=== PATIENT | female | born 1980 | race Caucasian/White ===

== ENCOUNTER 2022-09-16 12:38 | Outpatient (CLI) | payer OTHER, SELFPAY ==
--- NOTE | 2022-09-16 13:00 | CRLHL7_ITS ---
For Patients: As a result of the Cures Act, medical imaging exams and procedure reports are released immediately into your electronic medical record. You may view this report before your referring provider. If you have questions, please contact your health care provider. BILATERAL SCREENING MAMMOGRAM WITH COMPUTER-AIDED DETECTION AND TOMOSYNTHESIS TECHNIQUE: CC, MLO and Implant displaced views were obtained. These mammographic images have been obtained using full-field digital technique. These mammographic images were interpreted with the benefit of computer-aided detection. Breast Tomosynthesis was used in this interpretation. COMPARISON FILM: 04/30/21 FINDINGS: The breasts are heterogeneously dense, which may obscure small masses. IMPRESSION: There is no radiographic evidence for malignancy. ASSESSMENT: BI-RADS Category 2: Benign RECOMMENDATION: Routine screening mammogram in 1 year. A lay language report of this examination will be provided to the patient. Kp Willard M.D. Diagnostic Radiologist [email or web address] Transcribed: 8:41 a.m. PT/Dictated by: Kp Willard MD @ 09/17/2022 8:55:00 AM (Electronically Signed)
== END 2022-09-16 12:39 | disposition home or self-care (01) ==
LOC: MAMMO 12:38
PROVIDERS: Visit Provider Obstetrics & Gynecology
DX: Z12.31 Encounter for screening mammogram for malignant neoplasm of breast (principal); R92.2 Inconclusive mammogram
CPT/HCPCS: 77063; 77067

== ENCOUNTER 2023-09-25 14:44 | Outpatient (CLI) | payer BC, SELFPAY ==
--- NOTE | 2023-09-25 14:40 | MM_ITS ---
Patient: TAMMIE RICHOP Facility:?[facility] Patient ID:?[id number] Site Patient ID:?[id number]. Site :?1980 Study:?XRay-Breast Bilateral 3D W/CAD-09/25/2023 3:30:50 PM Ordering Physician:?VICENTA MARRUFO Final Report: BILATERAL SCREENING MAMMOGRAM WITH COMPUTER-AIDED DETECTION AND TOMOSYNTHESIS TECHNIQUE: CC, MLO and Implant displaced views were obtained. These mammographic images have been obtained using full-field digital technique. These mammographic images were interpreted with the benefit of computer-aided detection. Breast Tomosynthesis was used in this interpretation. COMPARISON FILM: 09/16/22, 04/30/21, 03/21/20. FINDINGS: The breasts are heterogeneously dense, which may obscure small masses. IMPRESSION: There is no radiographic evidence for malignancy. ASSESSMENT: BI-RADS Category 2: Benign. RECOMMENDATION: Routine screening mammogram in 1 year. A lay language report of this examination will be provided to the patient. Kp Willard M.D. Diagnostic Radiologist [email or web address] DSM/sp R& Transcribed: 2:46 p.m. SP/Dictated by: Kp Willard MD @ 09/29/2023 11:50:00 AM Signed by:?Kp Willard MD @09/29/2023 3:05:15 PM (Electronic Signature)
== END 2023-09-25 14:45 | disposition home or self-care (01) ==
LOC: MAMMO 14:46
PROVIDERS: PCP Physician Assistant Medical; Visit Provider Physician Assistant Medical
DX: Z12.31 Encounter for screening mammogram for malignant neoplasm of breast (principal); R92.2 Inconclusive mammogram
CPT/HCPCS: 77063; 77067

== ENCOUNTER 2024-11-19 13:32 | Outpatient (CLI) | payer BC, OTHER, SELFPAY ==
--- OUTSIDE RECORDS SUMMARY | 2023-11-13 04:01 | XMS_ITS | Continuity of Care Document ---
Author Organization [facility] Address [address] [address] [place] [address] Phone Care Team Providers Care Usps Letter Carrier Name Role Phone Chris Elliott CRNA Unavailable Unavailable Allergies, Adverse Reactions, Alerts Substance Reaction Status Criticality Sulfa (Sulfonamide Antibiotics) Active No Information No Known Allergies Resolved No Inform ation Medications Medication Instructions Dosage Effective Dates (start - stop) Status Comments No Drug Therapy Prescribed Procedures Procedure Date Colonoscopy Flex; Dx (sep Pro) 24 Advance Directives Directive Yes / No Effective Date File Name No Information Encounters Encounter Description Practice Location Reason(s) For Visit Diagnoses Date Provider Providers Copied on Encounter [facility] [place], [address] [address], [facility] [place], [id number], [place] tel:[phone] [facility] No Information 4 Earl Perez. [address] [facility], [place], [place], [id number] , [place]. tel:[phone] Referring Provider: Torito Cruz MD M, [address] [facility] [address], [place], [address] . tel:[phone] [facility] [place], [address] [address], [facility] [place], [id number], [place] tel:[phone] [facility] GI Symptoms or Concerns (chief complaint) Screening ColonoscopyFamily history of colon polyps, unspecifiedEncounte r for screening for malignant neoplasm of colon 4 Anthony Ugarte. [address] [facility], [place], [place], [id number] , [place]. tel:[phone] Referring Provider: Jennifer Barreto [facility], [address] [place] [address], [address]. tel:[phone] [facility], [address] [address], [place], [id number], [place] tel:[phone] [facility] No Information Dominik Comer. [address] [facility], [place], [id number] , [place]. tel:[phone] Family History Family Member Type Diagnosis Age At Onset Sister Problem (finding) Irritable bowel syndrom e Immunizations Vaccine Date Status Comments SARS-COV-2 (COVID-19) vaccin e, mRNA, spike protein, LNP, preservative free, 30 mcg/0.3mL dose administered Note: [facility] bi-direct ional interface ; Source: Other Registry SARS-COV-2 (COVID-19) vaccin e, mRNA, spike protein, LNP, preservative free, 30 mcg/0.3mL dose administered Note: [facility] bi-direct ional interface ; Source: Other Registry tetanus toxoid, reduced diphtheria toxoid, and acellular pertussis vaccine, adsorbed administered Note: [facility] b i-directional interface ; Source: Other Registry tetanus toxoid, reduced diphtheria toxoid, and acellular pertussis vaccine, adsorbed administered Note: [facility] b i-directional interface ; Source: Other Registry seasonal influenza, intrader mal, preservative free administered Note: [facility] bi-direct ional interface ; Source: Other Registry tetanus toxoid, reduced diphtheria toxoid, and acellular pertussis vaccine, adsorbed administered Note: [facility] b i-directional interface ; Source: Other Registry Afluria Qd administered Note: [facility] bi-directional interface ; Source: Other Registry Novel [id number], injectable administered Note: [facility] bi-direct ional interface ; Source: Other Registry Payers Payer name Insurance type Covered green party ID Authorjustina lynnettecal(s) [employer] Of [facility] [id number] Social History Type Description Quantity Date Captured Comments Sex Female Smoking Status No Information Chief Complaint And Reason For Visit No Information Reason For Referral Reason For Referral No Information History Of Present Illness Encounter Date Complaint History Of Prese nt Illness GI Symptoms or Concerns Functional Status Date Functional Assessmen t No Information Medications Administered Medication Instructions Dosage Effective Dates (start - stop) Status Comments No Drug Therapy Prescribed Instructions Date Instruction Additional Infor mation No Information Assessments Type Assessment Date No Information Patient Care Teams Name Effective Dates (start - stop) Status Members No Information
--- NOTE | 2024-11-19 13:40 | CRLHL7_ITS ---
For Patients: As a result of the Century Cures Act, medical imaging exams and procedure reports are released immediately into your electronic medical record. You may view this report before your referring provider. If you have questions, please contact your health care provider. BILATERAL DIGITAL SCREENING MAMMOGRAM WITH COMPUTER-AIDED DETECTION AND TOMOSYNTHESIS CLINICAL HISTORY: Routine screening exam. COMPARISON: 09/25/2023, 09/16/2022, 04/30/2021 TECHNIQUE: Digital mammogram in CC and MLO projections including computer-aided detection (CAD). Tomosynthesis was used in this interpretation. BREAST COMPOSITION: The breasts are heterogeneously dense, which may obscure small masses. FINDINGS: RIGHT Breast: Focal nodular density within the retroareolar plane 2 cm from the nipple. LEFT Breast: No suspicious findings. IMPRESSION: RIGHT breast asymmetry/mass. RECOMMENDATIONS: RIGHT breast ultrasound recommended. This is likely a cyst. The [facility] will contact the patient. A lay language report of this examination will be provided to the patient. BI-RADS Category 0: Incomplete: Need Additional Imaging Evaluation Dictated by Kp Willard MD @ 11/22/2024 9:44:39 AM Dictated by: Kp Willard MD @ 11/22/2024 09:44:48 (Electronically Signed)
--- OUTSIDE RECORDS SUMMARY | 2024-11-20 00:32 | XMS_ITS | Encounter Summary ---
Author Organization [facility] Address [address] [place] [address]. [place] [address] Care Team Providers Care Chinese Teacher Name Role Phone No Ref-Primary, Physician Primary Care Provider Nighat Mckeon MD Unavailable [phone] Encounter Details Date Type Department Care Team (Late st Contact Info) Description 10/20/2023 [facility] Medical Advice [facility] [address] [place] [address] Nicolette Hyman Social History Tobacco Use Types Packs/Day Years Used Date Smoking Tobacco: Never Smokeless Tobacco: Never PHQ-2 Answer Date Recorded PHQ-2 Score 0 04/09/2022 Adolescent Education Answer Date Record ed Getting School Help Needed Not on file 03/09 Comments No Sex and Gender Information Value Date Recorded Sex Assigned at Not on file 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
--- OUTSIDE RECORDS SUMMARY | 2024-11-20 00:32 | XMS_ITS | Encounter Summary ---
Author Organization [place] [facility] Address [address] [place] [address]. [place] [address] Care Team Providers Care Air Conditioning Coil Assembler Name Role Phone No Ref-Primary, Physician Primary Care Provider Nighat Mckeon MD Unavailable [phone] Encounter Details Date Type Department Care Team (Late st Contact Info) Description 06/13/2023 [facility] Medical Advice [facility] [address] [place] [id number] Alice Laws Social History Tobacco Use Types Packs/Day Years Used Date Smoking Tobacco: Never Assessed PHQ-2 Answer Date Recorded PHQ-2 Score 0 04/09/2022 Adolescent Education Answer Date Record ed Getting School Help Needed Not on file 03/09 Comments No Sex and Gender Information Value Date Recorded Sex Assigned at Not on file 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
--- OUTSIDE RECORDS SUMMARY | 2024-11-20 00:32 | XMS_ITS | Encounter Summary ---
Author Organization [facility] Address [address] [place] [address]. [place] [address] Care Team Providers Care Office Services Clerk Name Role Phone No Ref-Primary, Physician Primary Care Provider Nighat Mckeon MD Unavailable [phone] Encounter Details Date Type Department Care Team (Late st Contact Info) Description 03/05/2021 [facility] Medical Advice [facility] [address] [facility] [address] [place] [address] Carol Quinn Social History Tobacco Use Types Packs/Day Years Used Date Smoking Tobacco: Never Assessed Comments Unknown Sex and Gender Information Value Date Recorded Sex Assigned at Not on file 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
--- OUTSIDE RECORDS SUMMARY | 2024-11-20 00:32 | XMS_ITS | Clinical Summary ---
Author Organization [facility] Address [address] [place] [address] Care Team Providers Care Quality Improvement Consultant Name Role Phone No Ref-Primary, Physician Primary Care Provider Nighat Mckeon MD Unavailable [phone] Allergies Active Allergy Reactions Criticality Noted Date Comments Sulfa Antibiotics Nausea and Vomiting Low 8 Medications No known medications Active Problems Problem Noted Date Diagnosed Date Calculus of kidney 09/26/2017 Overview (09/23/2023): Added automatically from request for surgery [id number] Immunizations Immunization Administration Dates Next Due COVID-19 MONOVALENT 12+ (Pfizer) 07/19/2020,06/03 [id number] Novel Flu 04/04/2009 Influenza (intradermal) 06/10/2012 Influenza Vaccine >6 months,quad, PF 04/04/2009 TDAP (Adacel,Boostrix) 05/09/2016,11/02/2013, Family History * Patient is adopted Medical History Relation Comments Thyroid Disease Maternal Aunt Alcoholism Maternal Grandmother Diabetes Maternal Grandmother Relation Status Comments Maternal Aunt Alive Maternal Grandmother Social History Tobacco Use Types Packs/Day Years Used Date Smoking Tobacco: Never Smokeless Tobacco: Never PHQ-2 Answer Date Recorded PHQ-2 Score 0 04/09/2022 Adolescent Education Answer Date Record ed Getting School Help Needed Not on file 03/09 Comments No Sex and Gender Information Value Date Recorded Sex Assigned at Not on file Legal Sex Female 3:18 AM REFERRAL CLERK Gender Identity Not on file Sexual Orientation Not on file Last Filed Vital Signs Vital Sign Reading Time Taken Comments Blood Pressure 108/74 09/25/2023 9:19 AM CDT Pulse 76 04/09/2022 10:10 AM REFERRAL CLERK Temperature - - Respiratory Rate - - Oxygen Saturation - - Inhaled Oxygen Concentration - - Weight 75.8 kg (167 lb) 09/25/2023 9:19 AM CDT Height 167.6 cm (5' 6) 04/09/2022 10:10 AM REFERRAL CLERK Body Mass Index 26.95 04/09/2022 10:10 AM REFERRAL CLERK Plan of Treatment Health Maintenance Due Date Last Done Comments ADVANCE CARE PLANNING 1979 ANNUAL REVIEW OF HM ORDERS 1979 CT COLONOGRAPHY 1979 FIT 1979 FLEX SIG 1979 MAMMO SCREENING 1979 sDNA (Cologuard) 1979 COLONOSCOPY 1989 COLORECTAL CANCER SCREENING 1989 HIV SCREENING 1994 HEPATITIS C SCREENING 1997 HEPATITIS B VACCINE (1 of 3 - 19+ 3-dose series) 1998 LIPID 2019 COVID-19 VACCINE (3 - 2023-2 5 season) 2024 07/19/2020, 06/28/2020 PHQ-2 (once per calendar year) 2024 04/09/2022 YEARLY PREVENTIVE VISIT 09/24/2024 09/25/19 24, 04/09/2022 INFLUENZA VACCINE (Season Ended) 2025 06/10/2012, 04/04/2009, 04/04/2009 DIABETES SCREENING 04/09/2025 04/09/2022 DTAP/TDAP/TD VACCINE (4 - Td or Tdap) 05/09/2026 05/09/2016, 11/02/2013, 11/29/2009 HPV TEST 09/24/2028 09/25/2023 PAP 09/24/2028 09/25/2023 ZOSTER VACCINE (1 of 2) 2029 HPV VACCINE Aged Out No longer eligi ble based on patient's age to complete this topic MENINGITIS VACCINE Aged Out No longer eligible based on patient's age to complete this topic PNEUMOCOCCAL VACCINE: PEDIATRICS (0 to 5 YEARS) AND AT-RISK PATIENTS (6 to 49 YEARS) Aged Out No longer eligible b ased on patient's age to complete this topic Procedures Procedure Name Priority Date/Time Associated Diagnosis Comments GYNECOLOGIC CYTOLOGY Routine 09/25/2023 9:26 AM CDT Pap smear for cervical cancer screening HPV HIGH RISK TYPES DNA CERVICAL Routine 09/25/2023 9:26 AM CDT Pap smear for cervical cancer screening HEMOGLOBIN A1C Routine 04/09/2022 11:10 AM REFERRAL CLERK Other fatigue from Last 3 Months or Most Recently Relevant to Health Maintenance Results * Pap screen with HPV - recommended age 30 - 65 years (09/25/2023 9:26 AM CDT) Interpretation Negative for Intraepithelial Lesion or Malignancy (NILM) 09/29/2023 3:16 PM CDT [facility] at 1516 CDT Comment Papanicolaou Test Limitations: Cervical cytology is a screening test with limited sensitivity, and regular screening is critical for cancer prevention. Pap tests are primarily effective for the diagnosis/prevent ion of squamous cell carcinoma, not adenocarcinoma or other cancers. 09/29/2023 3:16 PM CDT [facility] Specimen Adequacy Satisfactory for evaluation, endocervical/henderson sformation zone component absent 09/29/2023 3:16 PM CDT [facility] Clinical Information none 09/29/2023 3:16 PM CDT [facility] Reflex Testing Yes regardless of result 09/29/2023 3:16 PM CDT [facility] Previous Abnormal? No 09/29/2023 3:16 PM CDT [facility] Performing Labs The technical component of this testing was completed at [facility] 09/29/2023 3:16 PM CDT [facility] Brushing CERVIX UTERI STRUCTURE / Unknown 09/25/2023 9:26 AM CDT 09/25/2023 10:32 AM CDT us Nighat MCCRAY - REINA CAMARGO Final Result [facility] [address] [facility] [address], Room [address] [place] [address], [facility] * HPV High Risk Types DNA Cervical (09/25/2023 9:26 AM CDT) Other HR HPV Negative Negative 09/30/2023 3:34 PM CDT [facility] HPV16 DNA Negative Negative 09/30/2023 3:34 PM CDT [facility] HPV18 DNA Negative Negative 09/30/2023 3:34 PM CDT [facility] FINAL DIAGNOSIS This patient's sample is negative for HPV DNA. This test was developed and its performance characteristics determined by the [facility], Molecular Diagnostics Laboratory. It has not been cleared or approved by the FDA. The laboratory is regulated under CLIA as qualified to perform high-complexity testing. This test is used for clinical purposes. It should not be regarded as investigational or for research. METHODOLOGY: The Mimi Nii 4800 system uses automated extraction, simultaneous amplification of HPV (L1 region) and beta-globin, followed by real time detection of fluorescent labeled HPV and beta globin using specific oligonucleotide probes. The test specifically identifies types HPV 16 DNA and HPV 18 DNA while concurrently detecting the rest of the high risk types (31, 33, 35, 39, 45, 51, 52, 56, 58, 59, 66 or 68). COMMENTS: This test is not intended for use as a screening device for woman under age 30 with normal cervical cytology. Results should be correlated with cytologic and histologic findings. Close clinical followup is recommended. 09/30/2023 3:34 PM CDT [facility] Brushing CERVIX UTERI STRUCTURE / Unknown Non-blood Collection / Unknown 09/25/2023 9:26 AM CDT 09/30/2023 8:13 AM CDT us Nighat Mckeon MD LAB - BLOOD ORDERABLES Final Result [facility] [address] [facility] [address] [facility], Room [address] [address], [facility] * Hemoglobin A1c (04/09/2022 11:10 AM REFERRAL CLERK) Hemoglobin A1C 5.1 0.0 - 5.6 % 04/09/2022 11:32 AM REFERRAL CLERK [facility] Comment: Normal <5.7% Prediabetes 5.7-6.4% Diabetes 6.5% or higher Note: Adopted from ADA consensus guidelines. Blood STRUCTURE OF RIGHT UPPER LIMB / Unknown Venipuncture / Unknown 04/09/2022 11:10 AM REFERRAL CLERK 04/09/2022 11:11 AM REFERRAL CLERK Nighat Mckeon MD LAB - BLOOD ORDERABLES Final Result [facility] [address], [address] [place] [address], [facility] [phone] from Last 3 Months or Most Recently Relevant to Health Maintenance Insurance [place] Care Teams Quality Improvement Consultant Relationship Specialty Start Date End Date No Ref-Primary, Physician PCP - General 09/16/17 Nighat Mckeon MD [address] [place] [address] Assigned OBGYN Provider 04/13/22
--- OUTSIDE RECORDS SUMMARY | 2024-11-20 00:32 | XMS_ITS | Clinical Summary ---
Author Organization [facility] Address [address], [place] [address] Care Team Providers Care Platform Supervisor Name Role Phone Unavailable Primary Care Provider Unavailabl e Source Comments You are receiving this document as you are listed as the primary care provider,follow-up provider, or the patient has been referred to you for consultation.This is in compliance with the Medicare and[facility] Hospital[facility] EHR Incentive Program,which states Providers who transition their patient to another setting of careor provider of care or refers their patient to another provider of care shouldprovide summary care record for each transition of care or referral. [facility] Allerg[facility] Active Allergy Reactions Criticality Noted Date Comments Sulfa Antibiotics Nausea And Vomiting Low 8 Medications No known medications Active Problems Problem Noted Date Diagnosed Date Calculus of kidney 09/26/2017 Overview (09/26/2017): Added automatically from request for surgery [id number] Social History Tobacco Use Types Packs/Day Years Used Date Smoking Tobacco: Never Smokeless Tobacco: Never Comments Unknown Sex and Gender Information Value Date Recorded Sex Assigned at Not on file Legal Sex Female 12:59 PM CDT Gender Identity Not on file Sexual Orientation Not on file Last Filed Vital Signs Vital Sign Reading Time Taken Comments Blood Pressure 118/64 10/07/2017 3:30 PM CDT Pulse 75 10/07/2017 3:45 PM CDT Temperature 36.8 C (98.2 F) 10/07/2017 2:27 PM CDT Respiratory Rate 13 10/07/2017 2:30 PM CDT Oxygen Saturation 96% 10/07/2017 3:45 PM CDT Inhaled Oxygen Concentration - - Weight 66.7 kg (147 lb) 10/06/2017 4:00 PM CDT Height 165.1 cm (5' 5) 10/06/2017 4:00 PM CDT Body Mass Index 24.46 10/06/2017 4:00 PM CDT Plan of Treatment Health Maintenance Due Date Last Done Comments Cervical Cancer Screening Due 1979 Colon Cancer Screening Plan Due 1979 Hep C Screening (Preventive Services) 1979 Mammogram 1979 HIV Screening (Preventive Services) 1995 Adult Preventive Visit 1997 HepB Vaccine (1) 1998 COVID-19 Vaccine ( - 2023-2 5 season) 2024 07/19/2020, 06/28/2020 Cholesterol 2024 Influenza Vaccine (Season Ended) 2025 06/10/2012 DTaP/Tdap/Td Vaccine (4 - Tdap) 05/09/2026 05/09/2016, 11/02/2013, 11/29/2009 Zoster/Shingles Vaccine (1 o f 2) 2029 HPV Vaccine Aged Out No longer eligi ble based on patient's age to complete this topic HepA Vaccine Aged Out No longer eligi ble based on patient's age to complete this topic Hib Vaccine Aged Out No longer eligi ble based on patient's age to complete this topic IPV (Polio) Vaccine Aged Out No longe r eligible based on patient's age to complete this topic MCV4 Vaccine Aged Out No longer eligi ble based on patient's age to complete this topic Meningococcal B Vaccine Aged Out No l onger eligible based on patient's age to complete this topic Pneumococcal Vaccine Aged Out No long er eligible based on patient's age to complete this topic Insurance FULLY INSURED Advance Directives * Full Code (Latest Code Status on File) Date Activated Date Inactivated Comments 10/07/2017 1:26 PM 10/07/2017 6:33 PM
== END 2024-11-19 13:33 | disposition home or self-care (01) ==
LOC: MAMMO 13:33
PROVIDERS: PCP Physician Assistant Medical; Visit Provider Physician Assistant Medical
DX: Z12.31 Encounter for screening mammogram for malignant neoplasm of breast (principal); R92.333 Mammographic heterogeneous density, bilateral breasts; N63.10 Unspecified lump in the right breast, unspecified quadrant; Z98.82 Breast implant status
CPT/HCPCS: 77063; 77067

== ENCOUNTER 2024-11-29 09:58 | Outpatient (CLI) | payer BC, OTHER, SELFPAY ==
--- NOTE | 2024-11-29 10:15 | CRLHL7_ITS ---
For Patients: As a result of the Century Cures Act, medical imaging exams and procedure reports are released immediately into your electronic medical record. You may view this report before your referring provider. If you have questions, please contact your health care provider. RIGHT BREAST ULTRASOUND CLINICAL HISTORY: RIGHT breast mass/asymmetry. COMPARISON: Mammogram 11/19/2024. TECHNIQUE: Real-time ultrasound imaging of RIGHT breast with imaging documentation. FINDINGS: Targeted RIGHT breast ultrasound performed at 6 o`clock 2 cm from the nipple. In this location, there is a simple circumscribed anechoic cyst with increased through-transmission measuring 1.3 x 0.9 x 1.3 cm. No abnormal vascularity. No suspicious findings. IMPRESSION: Benign simple cyst RIGHT breast 6 o`clock 2 cm from the nipple measuring 1.3 x 0.9 x 1.3 cm. No evidence of malignancy. RECOMMENDATIONS: Routine screening mammography. Results and recommendations were discussed with the patient at the time of the exam. A lay language report of this examination will be provided to the patient. BI-RADS Category 2: Benign Dictated by pK Willard MD @ 11/29/2024 11:08:58 AM jj/Dictated by: Kp Willard MD @ 11/29/2024 11:09:00 AM (Electronically Signed)
--- OUTSIDE RECORDS SUMMARY | 2024-11-30 02:27 | XMS_ITS | Encounter Summary ---
Author Organization [facility] Address [address] [place] [address]. [place] [address] Care Team Providers Care Hr Consultant Name Role Phone No Ref-Primary, Physician Primary Care Provider Nighat Mckeon MD Unavailable [phone] Encounter Details Date Type Department Care Team (Late st Contact Info) Description 03/05/[address] 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
--- OUTSIDE RECORDS SUMMARY | 2024-11-30 02:27 | XMS_ITS | Encounter Summary ---
Author Organization [facility] Address [address] [place] [address]. [place] [address] Care Team Providers Care Home Health Clinical Supervisor Name Role Phone No Ref-Primary, Physician Primary Care Provider Nighat Mckeon MD Unavailable [phone] Encounter Details Date Type Department Care Team (Late st Contact Info) Description 06/13/2023 [facility] Medical Advice [facility] [address] [place] [id number] Alice Laws Social History Tobacco Use Types Packs/Day Years Used Date Smoking Tobacco: Never Assessed PHQ-2 Answer Date Recorded PHQ-2 Score 0 04/09/2022 Adolescent Education Answer Date Record ed Getting School Help Needed Not on file 03/09 Comments No Sex and Gender Information Value Date Recorded Sex Assigned at Not on file 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
--- OUTSIDE RECORDS SUMMARY | 2024-11-30 02:27 | XMS_ITS | Encounter Summary ---
Author Organization [facility] Address [address] [place] [address]. [place] [address] Care Team Providers Care Business Development Name Role Phone No Ref-Primary, Physician Primary Care Provider Nighat Mckeon MD Unavailable [phone] Encounter Details Date Type Department Care Team (Late st Contact Info) Description 10/20/2023 [facility] Medical Advice [facility] [address] [place] [address] Nicolette Hyman Social History Tobacco Use Types Packs/Day Years Used Date Smoking Tobacco: Never Smokeless Tobacco: Never PHQ-2 Answer Date Recorded PHQ-2 Score 0 04/09/2022 Adolescent Education Answer Date Record ed Getting School Help Needed Not on file 03/09 Comments No Sex and Gender Information Value Date Recorded Sex Assigned at Not on file 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
--- OUTSIDE RECORDS SUMMARY | 2024-11-30 02:27 | XMS_ITS | Clinical Summary ---
Author Organization [facility] Address [address] [address] Care Team Providers Care Caregivers Homecare Name Role Phone Unavailable Primary Care Provider Unavailabl e Source Comments You are receiving this document as you are listed as the primary care provider,follow-up provider, or the patient has been referred to you for consultation.This is in compliance with the Medicare and[facility] EHR Incentive Program,which states Providers who transition their patient to another setting of careor provider of care or refers their patient to another provider of care shouldprovide summary care record for each transition of care or referral. [facility] Allerg[facility] Active Allergy Reactions Criticality Noted Date Comments Sulfa Antibiotics Nausea And Vomiting Low 8 Medications No known medications Active Problems Problem Noted Date Diagnosed Date Calculus of kidney 09/26/2017 Overview (09/26/2017): Added automatically from request for surgery [id number] Social History Tobacco Use Types Packs/Day Years [...]
--- OUTSIDE RECORDS SUMMARY | 2024-11-30 02:27 | XMS_ITS | Clinical Summary ---
Author Organization [facility] Address [address] [place] [address] Care Team Providers Care Assistant Foreman Name Role Phone No Ref-Primary, Physician Primary Care Provider Nighat Mckeon MD Unavailable [phone] Allergies Active Allergy Reactions Criticality Noted Date Comments Sulfa Antibiotics Nausea and Vomiting Low 8 Medications No known medications Active Problems Problem Noted Date Diagnosed Date Calculus of kidney 09/26/2017 Overview (09/23/2023): Added automatically from request for surgery [id number] Immunizations Immunization Administration Dates Next Due COVID-19 MONOVALENT 12+ (Pfizer) 07/19/2020,06/03 [id number] Novel Flu 04/04/2009 Influenza (intradermal) 06/10/2012 Influenza [...] on file Legal 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 Gender Identity Not on file Sexual Orientation Not on file Last Filed Vital Signs Vital Sign Reading Time Taken Comments Blood Pressure 108/74 09/25/2023 9:19 AM CDT Pulse 76 04/09/2022 10:10 AM TRANSFORMER ASSEMBLY SUPERVISOR Temperature - - Respiratory Rate - - Oxygen Saturation - - Inhaled Oxygen Concentration - - Weight 75.8 kg (167 lb) 09/25/2023 9:19 AM CDT Height 167.6 cm (5' 6) 04/09/2022 10:10 AM TRANSFORMER ASSEMBLY SUPERVISOR Body Mass Index 26.95 04/09/2022 10:10 AM TRANSFORMER ASSEMBLY SUPERVISOR Plan of Treatment Health Maintenance Due Date [...] screening HEMOGLOBIN A1C Routine 04/09/2022 11:10 AM TRANSFORMER ASSEMBLY SUPERVISOR Other fatigue from Last 3 Months or [...] component of this testing was completed at [facility] 09/29/2023 3:16 PM CDT [facility] Brushing CERVIX UTERI STRUCTURE / Unknown 09/25/2023 9:26 AM CDT 09/25/2023 10:32 AM CDT us Nighat MCCRAY - REINA CAMARGO Final Result [facility] [address] [facility] [address], [address] [place] [id number], [facility] * HPV High Risk Types DNA Cervical (09/25/2023 9:26 AM CDT) Other HR HPV Negative Negative 09/30/2023 3:34 PM CDT [facility] HPV16 DNA Negative Negative 09/30/2023 3:34 PM CDT [facility] HPV18 DNA Negative Negative 09/30/2023 3:34 PM CDT [facility] FINAL DIAGNOSIS This patient's sample is negative for HPV DNA. This test was developed and its performance characteristics determined by the [facility], Molecular Diagnostics Laboratory. It has not been [...] Final Result [facility] Molecular Diagnostics [address] [facility] [address] [facility], [address] [address], [facility] * Hemoglobin A1c (04/09/2022 11:10 AM TRANSFORMER ASSEMBLY SUPERVISOR) Hemoglobin A1C 5.1 0.0 - 5.6 % 04/09/2022 11:32 AM TRANSFORMER ASSEMBLY SUPERVISOR [facility] Comment: Normal <5.7% Prediabetes 5.7-6.4% Diabetes 6.5% or higher Note: Adopted from ADA consensus guidelines. Blood STRUCTURE OF RIGHT UPPER LIMB / Unknown Venipuncture / Unknown 04/09/2022 11:10 AM TRANSFORMER ASSEMBLY SUPERVISOR 04/09/2022 11:11 AM TRANSFORMER ASSEMBLY SUPERVISOR Nighat Mckeon MD LAB - BLOOD ORDERABLES Final Result [facility] [address], [address] [place] [address], [facility] [phone] from Last 3 Months or Most Recently Relevant to Health Maintenance Insurance [place] Care Teams Assistant Foreman Relationship Specialty Start Date End Date No Ref-Primary, Physician PCP - General 09/16/17 Nighat Mckeon MD [address] [place] [address] Assigned OBGYN Provider 04/13/22
== END 2024-11-29 09:59 | disposition home or self-care (01) ==
LOC: US 09:59
PROVIDERS: PCP Physician Assistant Medical; Visit Provider Physician Assistant Medical
DX: N63.10 Unspecified lump in the right breast, unspecified quadrant (principal); N60.01 Solitary cyst of right breast; R92.8 Other abnormal and inconclusive findings on diagnostic imaging of breast
CPT/HCPCS: 76642